=== PATIENT | male | born 1960 | race Caucasian/White ===

== ENCOUNTER 2017-07-16 01:06 | Emergency (ER) | payer OTHER ==
[2017-07-16 01:12] VITALS: BP 135/86; PULSE 66; RESP 18; TEMP 97.9; O2SAT 96
--- NOTE | 2017-07-16 01:26 | EDPHY ---
H & P Stated Complaint: PT SELF CATHS AND FEELS LIKE HE HAS UTI SXS Time Seen by Provider: 07/16/17 01:14 HPI/ROS: Chief Complaint: Bladder pressure, urinary discomfort HPI: 57-year-old male with a history of ulcerative colitis and a neurogenic bladder who is been doing self catheterization for the last 2 years. For the last 4 days patient has had increasing UTI symptoms including urgency to void, pain when he self caths, some low pelvic pain. No nausea or vomiting. No fevers or chills. No back pain. States it feels similar to prior urinary tract infections. ROS: 10 point Review of Systems is negative except as noted in the HPI. Family History: non-contributory Physical Exam: Gen: Awake, Alert, No Distress HEENT: Nose: no rhinorrhea Eyes: PERRLA, EOMI Mouth: Moist mucosa Neck: Supple, no JVD Chest: nontender, lungs clear to auscultation Heart: S1, S2 normal, no murmur Abd: Soft, non-tender, no guarding, right lower quadrant ostomy in place Back: no CVA tenderness, no midline tenderness Ext: no edema, non-tender Skin: no rash Neuro: CN II-XII intact, Sensation grossly intact, Strength 5/5 in bilateral upper and lower extremities - Personal History Current Tetanus/Diphtheria Vaccine: Unsure Current Tetanus Diphtheria and Acellular Pertussis (TDAP): Unsure - Medical/Surgical History Hx Asthma: No Hx Chronic Respiratory Disease: No Hx Diabetes: No Hx Cardiac Disease: No Hx Renal Disease: No Hx Cirrhosis: No Hx Alcoholism: No Hx HIV/AIDS: No Hx Splenectomy or Spleen Trauma: No Other PMH: chronic back pain, ulcerative colitis, GI SURGER X7, COLOSTOMY, SPINAL STENOSIS, SELF CATH DUE TO ABD SURGERY - Social History Smoking Status: Never smoked Constitutional: Initial Vital Signs Temperature (C) 36.6 C 07/16/17 01:07 Heart Rate 66 07/16/17 01:07 Respiratory Rate 18 07/16/17 01:07 Blood Pressure 135/86 H 07/16/17 01:07 O2 Sat (%) 96 07/16/17 01:07 O2 Delivery Mode Room Air Allergies/Adverse Reactions: latex Allergy (Verified 07/16/17 01:12) levofloxacin [From Levaquin] Allergy (Verified 07/16/17 01:12) morphine Allergy (Verified 07/16/17 01:12) Sulfa (Sulfonamide Antibiotics) Allergy (Verified 07/16/17 01:12) Home Medications: Medication Instructions Recorded GABAPENTIN 09/15/14 Nitrofurantoin Monohyd/M-Cryst 100 mg PO BID #10 capsule 07/16/17 [Macrobid 100 mg Capsule] Phenazopyridine HCl [Pyridium] 200 mg PO TID #6 tab 07/16/17 Medical Decision Making ED Course/Re-evaluation: Patient's urine is consistent with UTI. Given his symptomatology will start him on Macrobid and Pyridium. Will follow up with his primary care physician in 2 days. - Data Points Laboratory Results: 07/16/17 01:32 Urine Color YELLOW Urine Appearance MODERATELY TURBID Urine pH 6.0 (5.0-7.5) Ur Specific [place] 1.012 (1.002-1.030) Urine Protein 2+ H (NEGATIVE) Urine Ketones NEGATIVE (NEGATIVE) Urine Blood 3+ H (NEGATIVE) Urine Nitrate NEGATIVE (NEGATIVE) Urine Bilirubin NEGATIVE (NEGATIVE) Urine Urobilinogen NEGATIVE EU EU (0.2-1.0) Ur Leukocyte Esterase 3+ H (NEGATIVE) Urine RBC 50-182 /hpf H /hpf (0-3) Urine WBC 50-182 /hpf H /hpf (0-3) Ur Epithelial Cells NONE SEEN /lpf /lpf (NONE-1+) Urine Bacteria 1+ /hpf H /hpf (NONE SEEN) Urine Glucose NEGATIVE (NEGATIVE) Departure - Departure Disposition: Home, Routine, Self-Care Clinical Impression: Urinary tract infection Condition: Good Instructions: Urinary Tract Infection in Men (ED) Additional Instructions: Please take her full course of antibiotics. Follow up with primary care physician in 3-4 days if symptoms are not improving. Return to the emergency department for increasing pain, fevers, chills, nausea, vomiting, or any other concerns. Referrals: Yoselin Parekh MD [Primary Care Provider] - As per Instructions Prescriptions: Nitrofurantoin Monohyd/M-Cryst [Macrobid 100 mg Capsule] 100 mg PO BID #10 capsule Phenazopyridine HCl [Pyridium] 200 mg PO TID #6 tab
[2017-07-16] MEDS ORDERED: PHENAZOPYRIDINE HCL 200 MG TAB PO ONE (02:04)
[2017-07-16] MEDS ORDERED: NITROFURANTOIN 100MG PREPACK#2 BTL TAKEHOME ONE (02:04)
== END 2017-07-16 02:17 | disposition home or self-care (01) ==
DX: N39.0 Urinary tract infection, site not specified (principal); B96.20 Unspecified Escherichia coli [E. coli] as the cause of diseases classified elsewhere; Z91.040 Latex allergy status

== ENCOUNTER → 2018-05-24 | Outpatient (CLI) | payer OTHER | LOC: BMCIMAGING 09:23 → EDSTATUS 09:50 | PROVIDERS: ATTEND Orthopaedic Surgery | DX: M16.11 Unilateral primary osteoarthritis, right hip (principal) ==

== ENCOUNTER 2018-05-28 23:42 | Observation (INO) | payer OTHER ==
[2018-05-28] MEDS ORDERED: NS 1,000 ML IV ONE (23:54)
[2018-05-28] MEDS ORDERED: ONDANSETRON 4 MG/2 ML VIAL IVP ONE (23:54)
--- NOTE | 2018-05-28 23:54 | EDPHY ---
H & P Stated Complaint: poss gi blockage, n/v/abd pain x 24 hrs Time Seen by Provider: 05/28/18 23:54 HPI/ROS: HPI CHIEF COMPLAINT: Abdominal pain, nausea, vomiting decreased output from colostomy HISTORY OF PRESENT ILLNESS: 58-year-old male history of ulcerative colitis presents emergency room nausea vomiting and abdominal pain. Decreased output from his colostomy pouch. Patient states he has a long history of ulcer colitis. Side multiple abdominal surgeries. Presents emergency room nausea vomiting abdominal pain. Past Medical History: Significant medical history for cervical stenosis, ulcerative colitis Past Surgical History: Colostomy, J pouch, J pouch reversal Social History: Denies drugs alcohol tobacco Family History: Noncontributory ROS REVIEW OF SYSTEMS: 10 Systems were reviewed and negative with the exception of the elements mentioned in the history of present illness. Exam Constitutional triage nursing summary reviewed, vital signs reviewed, awake/ alert. Eyes normal conjunctivae and sclera, EOMI, PERRLA. HENT normal inspection, atraumatic, moist mucus membranes, no epistaxis, neck supple/ no meningismus, no raccoon eyes. Respiratory clear to auscultation bilaterally, normal breath sounds, no respiratory distress, no wheezing. Cardiovascular rate normal, regular rhythm, no murmur, no edema, distal pulses normal. Gastrointestinal mild tender palpation diffusely no peritoneal signs., no rebound, no guarding, normal bowel sounds, no distension, no pulsatile mass. Genitourinary no CVA tenderness. Musculoskeletal no midline vertebral tenderness, full range of motion, no calf swelling, no tenderness of extremities, no meningismus, good pulses, neurovascularly intact. Skin pink, warm, & dry, no rash, skin atraumatic. Neurologic awake, alert and oriented x 3, AAOx3, moves all 4 extremities equally, motor intact, sensory intact, CN II-XII intact, normal cerebellar, normal vision, normal speech. Psychiatric normal mood/affect. Heme/Lymph/Immune no lymphadenopathy. Differential Diagnosis: Differential diagnosis includes but is not limited to and in no particular order: Bowel obstruction, appendicitis, gallbladder disease, diverticulitis, colitis, enteritis, perforated viscus, gastritis, GERD , esophagitis, urinary tract infection, pyelonephritis, kidney stones Medical Decision Making: Plan for this patient IV establishment IV fluid bolus , IV Dilaudid for pain control IV Zofran nausea, lab work, CT scan abdomen pelvis with IV contrast. Re-evaluation: CT scan abdomen pelvis with IV contrast called to me by Dr. Swan: No free air no abscess. Small bowel has small bowl fecalazation. Most likely enteritis , pancreatitis ileus. 1:23 a.m. Patient continues to have pain. Ordered him more pain medicine. Abdomen is non peritoneal. Patient's lab work reviewed elevated lipase. Plan for admission for pancreatitis and abdominal pain. Spoke with Dr. Tim. Agrees to admit, Abdominal pain, Pancreatitis. Patient updated, agrees for admission. 0214: Updated patient agrees for admission. He is not vomiting. He is comfortable with IV Dilaudid this time received IV fluids. Resting comfortably. Plan for admission overnight observation, bowel rest, nausea medicine as needed , pain medicine as needed. Treat for pancreatitis. Source: Patient - Medical/Surgical History Hx Asthma: No Hx Chronic Respiratory Disease: No Hx Diabetes: No Hx Cardiac Disease: No Hx Renal Disease: No Hx Cirrhosis: No Hx Alcoholism: No Hx HIV/AIDS: No Hx Splenectomy or Spleen Trauma: No Other PMH: chronic back pain, ulcerative colitis, GI SURGER X7, COLOSTOMY, SPINAL STENOSIS, SELF CATH DUE TO ABD SURGERY - Social History Smoking Status: Never smoked Constitutional: Initial Vital Signs Heart Rate 82 05/28/18 23:47 Respiratory Rate 20 05/28/18 23:47 Blood Pressure 114/97 H 05/28/18 23:47 O2 Sat (%) 97 05/28/18 23:47 O2 Delivery Mode Room Air Allergies/Adverse Reactions: levofloxacin [From Levaquin] Allergy (Unknown, Verified 05/29/18 09:21) Hives morphine Allergy (Unknown, Verified 05/29/18 09:21) Hives Sulfa (Sulfonamide Antibiotics) Allergy (Unknown, Verified 05/29/18 09:21) Other-Enter Comments latex Allergy (Verified 05/28/18 23:51) Home Medications: Medication Instructions Recorded Gabapentin 1,800 mg PO HS 09/15/14 Acetaminophen [Tylenol 325mg (*)] 650 mg PO Q4HRS PRN tab 05/29/18 Herbals/Supplements -Info Only 1 ea PO DAILY 05/29/18 Ondansetron Odt [Zofran Odt] 4 mg PO Q4 #30 tab 05/29/18 Medical Decision Making - Data Points Laboratory Results: Laboratory Results 05/29/18 00:04 05/29/18 00:04 Medications Given: Discontinued Medications Enoxaparin Sodium (Lovenox) 40 mg SC DAILY ROMELIA Stop: 11/25/18 08:59 Last Admin: 05/29/18 09:19 Dose: 40 mg Hydromorphone HCl (Dilaudid) 1 mg IVP EDNOW ONE Stop: 05/29/18 00:09 Last Admin: 05/29/18 00:14 Dose: 1 mg Hydromorphone HCl (Dilaudid) 1 mg IVP EDNOW ONE Stop: 05/29/18 01:21 Last Admin: 05/29/18 01:23 Dose: 1 mg Hydromorphone HCl (Dilaudid) 0.5 mg IVP Q2HRS PRN PRN Reason: Pain, Severe Unable to Take PO Stop: 06/08/18 02:51 Last Admin: 05/29/18 11:13 Dose: 0.5 mg Sodium Chloride (Ns) 1,000 mls @ 0 mls/hr IV EDNOW ONE; Wide Open PRN Reason: Protocol Stop: 05/28/18 23:55 Last Admin: 05/29/18 00:14 Dose: 1,000 mls Sodium Chloride (Ns) 1,000 mls @ 0 mls/hr IV ONCE ONE PRN Reason: Wide Open Stop: 05/29/18 00:09 Last Admin: 05/29/18 00:14 Dose: 1,000 mls Sodium Chloride (Ns) 1,000 mls @ 0 mls/hr IV EDNOW ONE; Wide Open PRN Reason: Protocol Stop: 05/29/18 01:29 Last Admin: 05/29/18 01:28 Dose: 1,000 mls Sodium Chloride (Ns) 1,000 mls @ 125 mls/hr IV CONT ROMELIA Stop: 11/25/18 02:59 Last Admin: 05/29/18 10:51 Dose: 1,000 mls Lorazepam (Ativan Injection) 0.5 - 1 mg IVP Q8HRS PRN PRN Reason: Anxiety, Unable to Take PO Stop: 11/25/18 02:45 Last Admin: 05/29/18 05:50 Dose: 0.5 mg Ondansetron HCl (Zofran) 4 mg IVP EDNOW ONE Stop: 05/28/18 23:55 Last Admin: 05/29/18 00:13 Dose: 4 mg Ondansetron HCl (Zofran) 4 mg IVP Q4HRS PRN PRN Reason: Nausea/Vomiting, Can't Take PO Stop: 11/25/18 02:45 Last Admin: 05/29/18 09:04 Dose: 4 mg Ondansetron HCl (Zofran Odt) 4 mg PO Q4HRS PRN PRN Reason: Nausea/Vomiting, Use 1st Stop: 11/25/18 02:45 Last Admin: 05/29/18 13:37 Dose: 4 mg Departure - Departure Disposition: [facility] Inpatient Acute Clinical Impression: Abdominal pain Qualifiers: Abdominal location: generalized Qualified Code(s): R10.84 - Generalized abdominal pain Pancreatitis Qualifiers: Chronicity: acute Pancreatitis type: other Acute pancreatitis complication: unspecified Qualified Code(s): K85.80 - Other acute pancreatitis without necrosis or infection Condition: Fair
[2018-05-29] MEDS ORDERED: HYDROmorphONE/DILAUDID 2 MG/ML INJ IVP ONE ×2 (00:08→01:20)
[2018-05-29] MEDS ORDERED: NS 1,000 ML IV ONE ×2 (00:08→01:28)
[2018-05-29] MEDS ORDERED: HYDROmorphONE/DILAUDID 1 MG/ML INJ ONE ×2 (00:09→01:20)
[2018-05-29 00:13] LABS: PLATELET COUNT 324 10^3/uL (150-400)
[2018-05-29 00:22] LABS: INR 0.92 (0.83-1.16); PROTIME(PATIENT) 12.6 SEC (12.0-15.0)
[2018-05-29] MEDS ORDERED: IOPAMIDOL (ISOVUE 370) 100 ML BTL IV ONE (00:22)
[2018-05-29] MEDS ORDERED: ONDANSETRON DISINTEGRATING 4 MG TAB PO PRN (02:46)
[2018-05-29] MEDS ORDERED: ACETAMINOPHEN 325 MG TAB PO PRN (02:46)
[2018-05-29] MEDS ORDERED: HYDROCODONE/APAP 5/325 TAB PO PRN (02:46)
[2018-05-29] MEDS ORDERED: PROMETHAZINE HCL 25 MG/ML INJ IVP PRN (02:46)
[2018-05-29] MEDS ORDERED: LORazepam 2 MG/ML INJ IVP PRN (02:46)
[2018-05-29] MEDS: NS 1,000 ML IV SCH ×2 (03:07→10:51)
[2018-05-29] MEDS: ONDANSETRON 4 MG/2 ML VIAL IVP PRN ×2 (03:07→09:04)
[2018-05-29] MEDS: HYDROmorphONE/DILAUDID 1 MG/ML INJ IVP PRN ×3 (03:36→11:13)
--- NOTE | 2018-05-29 06:57 | PDGENHP ---
History and Physical - Chief Complaint Abdominal pain, no ostomy output - History of Present Illness Source-patient provides history and appears reliable. EMR was reviewed and case discussed with ED provider. HPI-this is a very pleasant 58-year-old gentleman with a past medical history significant for ulcerative colitis status post a colostomy and subsequent complicated course of a J pouch with need for revision and recurrent infections and adhesiolysis totaling in at least 7 abdominal surgeries who presents to the emergency department today with complaints of nausea, vomiting and increased abdominal pain with decreased ostomy output. Patient reports that he has had numerous bowel obstruction in the past but has been able to make significant lifestyle changes and dietary changes that he has not had any issues and a few years. Patient reports in the last 1-2 days he has noted some increased abdominal discomfort and thought that perhaps he was developing a partial small- bowel obstruction so he made himself NPO and had very little intake. He reports however for the new 's celebration he did eat in some foods that have not normally been on his diet that may have been difficult to digest. He denies any fevers or chills. No known sick contacts with GI symptoms. He reports diffuse abdominal pain and intermittent cramping. One patient's nausea , vomiting and abdominal pain became uncontrollable at home he presented to the emergency department. In the emergency department patient received IV fluids hand underwent CT of the abdomen that showed fecalization of small bowel and without overt obstruction but was concerning for gastroenteritis versus ileus versus developing small bowel obstruction. Since arrival to the medical floor patient has received additional low-dose Dilaudid and was able to rest. Additionally he notes that he is starting to have some loose output in his ostomy. He continues to have some low-grade nausea. History Information - Allergies/Home Medication List Allergies/Adverse Reactions: latex Allergy (Verified 05/28/18 23:51) levofloxacin [From Levaquin] Allergy (Verified 05/28/18 23:51) morphine Allergy (Verified 05/28/18 23:51) Sulfa (Sulfonamide Antibiotics) Allergy (Verified 05/28/18 23:51) Home Medications: GABAPENTIN 09/15/14 [Last Taken Unknown] I have personally reviewed and updated: family history, medical history, social history, surgical history - Past Medical History Additional medical history: Ulcerative colitis status post colectomy diagnosed age 29. History of multiple small-bowel obstruction with a history of adhesions and multiple abdominal surgeries due to complications and adhesions. Urinary retention chronic neck pain due to cervical spinal stenosis. History MRSA in 2012. - Surgical History Additional surgical history: Past surgical history abdominal surgeries x7 at least. Patient with history of colectomy with ostomy. He subsequently had a YANI post placement with a reversal following recurrent intra-abdominal infections - Family History Additional family history: Patient's maternal grandmother with a history of recurrent GI issues and abdominal surgeries due to pancreatic cancer in her 50s. Patient unsure if she was ever diagnosed with IBD as this was some time ago. Mother-rheumatoid arthritis and lung disease. Chronic GI symptoms but no history of ulcerative colitis. - Social History Smoking Status: Never smoked Alcohol Use: None Drug Use: Marijuana (Edible p.r.n.) Additional social history: Patient lives in [place] with his significant other. 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 Cor status-full. Patient's good friend is his MD [place] in he does have advance directives Review of Systems Review of Systems: ROS: 10pt was reviewed & negative except for what was stated in HPI & below Constitutional: Reports: no symptoms EENMT: Reports: sore throat (Related to vomiting). Denies: nose congestion Cardiac: Reports: no symptoms Respiratory: Reports: no symptoms Gastrointestinal: Reports: vomitting, abdominal pain (See HPI), nausea. Denies : diarrhea (Absent output upon admission now with some liquid in his ostomy bag. ) Genitourinary: Reports: no symptoms Muscolosketal: Reports: neck pain (Chronic neck pain due to spinal stenosis.) Skin: Reports: no symptoms Neurological: Reports: no symptoms Hematologic/Lymphatic: Reports: no symptoms Physical Exam Physical Exam: Selected Entries 05/28/18 23:47 Heart Rate 82 Respiratory 20 Rate O2 Sat (%) 97 Blood Pressure 114/97 H Mean Arterial 102 H Pressure (MAP) O2 Delivery Room Air Mode Temp Pulse Resp BP Pulse Ox 36.8 C 70 16 119/67 97 05/29/18 03:47 05/29/18 03:47 05/29/18 03:47 05/29/18 03:47 05/29/18 03:47 O2 (L/minute) 2 Constitutional: no apparent distress, appears nourished, No cachectic (Patient is thin with very limited body fat but quite toned does not appear cachectic.) Eyes: PERRL (Pupils decreased in size with decreased reactivity light bilaterally but symmetric.), anicteric sclera, EOMI, No scleral injection Ears, Nose, Mouth, Throat: dry mucous membranes, other (No nasal discharge.), No poor dentition Cardiovascular: regular rate and rhythym, no murmur, rub, or gallop, pulses symmetric bilaterally, edema Peripheral Pulses: 2+: dorsalis-pedis (R), dorsalis-pedis (L) Respiratory: no respiratory distress, no rales or rhonchi, clear to auscultation , No inspiratory crackles, No respiratory distress Gastrointestinal: soft, non-tender abdomen, no palpable masses, tenderness ( Generalized mild to soft palpation.), other (Hypoactive bowel sounds diffusely.) , No cantrell's sign, No guarding, No distension Genitourinary: no bladder tenderness, No humphries in urethra Skin: warm, no rashes or abrasions Musculoskeletal: full muscle strength, no muscle tenderness, pain with ROM (Neck ), other (Patient sits up independently. Moves all extremities.) Neurologic: AAOx3, sensation intact bilaterally, other (Grossly nonfocal exam.) , No facial droop Psychiatric: interacting appropriately, not anxious, not encephalopathic, thought process linear, other (Patient thought process content and questions are appropriate. Patient is pleasant and cooperative.) Lab Data & Imaging Review 05/29/18 00:04 05/29/18 00:04 WBC 13.97 10^3/uL (3.80-9.50) H 05/29/18 00:04 RBC 5.33 10^6/uL (4.40-6.38) 05/29/18 00:04 Hgb 15.8 g/dL (13.7-17.5) 05/29/18 00:04 Hct 45.7 % (40.0-51.0) 05/29/18 00:04 MCV 85.7 fL (81.5-99.8) 05/29/18 00:04 MCH 29.6 pg (27.9-34.1) 05/29/18 00:04 MCHC 34.6 g/dL (32.4-36.7) 05/29/18 00:04 RDW 12.7 % (11.5-15.2) 05/29/18 00:04 Plt Count 324 10^3/uL (150-400) 05/29/18 00:04 MPV 9.1 fL (8.7-11.7) 05/29/18 00:04 Neut % (Auto) 82.4 % (39.3-74.2) H 05/29/18 00:04 Lymph % (Auto) 9.1 % (15.0-45.0) L 05/29/18 00:04 Nelson % (Auto) 7.2 % (4.5-13.0) 05/29/18 00:04 Eos % (Auto) 0.6 % (0.6-7.6) 05/29/18 00:04 Baso % (Auto) 0.4 % (0.3-1.7) 05/29/18 00:04 Nucleat RBC Rel Count 0.0 % (0.0-0.2) 05/29/18 00:04 Absolute Neuts (auto) 11.53 10^3/uL (1.70-6.50) H 05/29/18 00:04 Absolute Lymphs (auto) 1.27 10^3/uL (1.00-3.00) 05/29/18 00:04 Absolute Monos (auto) 1.00 10^3/uL (0.30-0.80) H 05/29/18 00:04 Absolute Eos (auto) 0.08 10^3/uL (0.03-0.40) 05/29/18 00:04 Absolute Basos (auto) 0.05 10^3/uL (0.02-0.10) 05/29/18 00:04 Absolute Nucleated RBC 0.00 10^3/uL (0-0.01) 05/29/18 00:04 Immature Gran % 0.3 % (0.0-1.1) 05/29/18 00:04 Immature Gran # 0.04 10^3/uL (0.00-0.10) 05/29/18 00:04 PT 12.6 SEC (12.0-15.0) 05/29/18 00:04 INR 0.92 (0.83-1.16) 05/29/18 00:04 APTT 21.7 SEC (23.0-38.0) L 05/29/18 00:04 VBG Lactic Acid 2.2 mmol/L (0.7-2.1) H 05/29/18 00:04 Sodium 132 mEq/L (135-145) L 05/29/18 00:04 Potassium 3.9 mEq/L (3.5-5.2) 05/29/18 00:04 Chloride 99 mEq/L (97-110) 05/29/18 00:04 Carbon Dioxide 23 mEq/l (22-31) 05/29/18 00:04 Anion Gap 10 mEq/L (6-14) 05/29/18 00:04 BUN 20 mg/dL (7-23) 05/29/18 00:04 Creatinine 1.3 mg/dL (0.7-1.3) 05/29/18 00:04 Estimated GFR 57 05/29/18 00:04 Glucose 130 mg/dL (70-100) H 05/29/18 00:04 Calcium 10.0 mg/dL (8.5-10.4) 05/29/18 00:04 Total Bilirubin 0.8 mg/dL (0.1-1.4) 05/29/18 00:04 Conjugated Bilirubin 0.1 mg/dL (0.0-0.5) 05/29/18 00:04 Unconjugated Bilirubin 0.7 mg/dL (0.0-1.1) 05/29/18 00:04 AST 41 IU/L (17-59) 05/29/18 00:04 ALT 41 IU/L (21-72) 05/29/18 00:04 Alkaline Phosphatase 99 IU/L (38-126) 05/29/18 00:04 Total Protein 7.4 g/dL (6.3-8.2) 05/29/18 00:04 Albumin 4.8 g/dL (3.5-5.0) 05/29/18 00:04 Lipase 2261 IU/L (23-300) H 05/29/18 00:04 Imaging Review: CT abdomen pelvis. preliminary radiology report as noted below. History of UC with prior colectomy in ED with elevated WBC with left shift, elevated lipase of 2300, abdominal pain, N/V requesting dilaudid. Fluid distended SB with fecalized portions, but stomach not signficantly distended. Diff dx: enteritis vs ileus vs mechanical SB obstruction (stomal stenosis not excluded); no free air Mild "fullness" of the pancreas but no mass or peripancreatic phlegmon or abscess or biliary dilitation; GB moderately distended but no PCF, WT, or stone observed 4 mm LP RK nephrolith, with no obstruction Preliminary results discussed with Dr. García at 1:23 am on 05/29/18. MB Assessment & Plan Assessment: Pleasant 58-year-old gentleman with a history of ulcerative colitis s/p colectomy with ostomy and complicated intra-abdominal course with history of multiple small-bowel obstructions presents to the ED with complaints of 1-2 days of increasing abdominal pain, nausea, vomiting and decreased output in his ostomy. #Abdominal pain (Acute) - patient with a significant history GI history with multiple surgeries, adhesions, history of small-bowel obstructions. He has not had any recent sick contacts and has been afebrile. He did have decreased output from his ostomy which has started to produce some liquid output. Suspect that patient may have had early small-bowel obstruction versus ileus and will have patient continue NPO status given he continues to have some abdominal pain with improvement will hold off on advancing diet until patient could be recess this morning by day hospitalist. Consider additional discussion with surgery of patient does not continue to improve. P.r.n. Morphine and Ativan available. Patient received Dilaudid in the emergency department and was able to rest on the floor. #Elevated lipase - CT without any evidence of pancreatitis suspect this is elevated due to patient's intractable nausea vomiting. If patient should stay additional day consider repeating lipase however his symptoms are significantly improved at this time he does not drink alcohol. No evidence of gallstone or biliary obstruction. #Hyponatremia-likely secondary to hypovolemia. Continue with IV fluid resuscitation. Patient appears dehydrated even with IV fluid hydration in the ED. #Elevated lactate-mildly increased but likely due to dehydration. No evidence of sepsis or infectious process at this point. No need to repeat. Continue with IV fluid. #Leukocytosis - likely reactive in setting of abdominal pain, dehydration and nausea vomiting. Patient is afebrile. #Dehydration-continue with IV fluid hydration. NPO status as noted above. #Chronic neck pain due to cervical spinal stenosis - patient reports he typically controls this with daily yoga and exercise as well as gabapentin in the evening. Resume once patient's diet is advanced. FEN - continue IV fluids as noted above. NPO status pending reassessment in the morning by day team. Patient is starting to have some amount of output in his ostomy. Electrolytes are adequate at this time replace if needed. PPX-SCDs. Consider anticoagulation if patient should stay additional day. Otherwise patient low to moderate risk encourage mobilization. Cor status-full Disposition-patient admitted observation status on the med [facility] floor. He is beginning to have output in his ostomy and his abdominal pain is improved. He has not yet had his diet advanced pending day team evaluation.
[2018-05-29] MEDS ORDERED: ENOXAPARIN 40 MG/0.4 ML SYR SC SCH (09:00)
--- NOTE | 2018-05-29 11:37 | ASMTCMCOM ---
CM Note CM Note Notes: Pt is a 58 y/o man admitted or abdominal pain. Pt with a hx of 7 abdominal surgeries. Pt hs a ostomy. Pt will most likely d/c independent when medically stable. No therapies ordered at this time. CM available for changes. Plan: Independent Date Signed: 05/29/2018 11:36 AM Electronically Signed By:REJI Heck
[2018-05-29 12:12] VITALS: BP 108/70
--- NOTE | 2018-05-29 13:36 | HOSPPROG ---
Hospitalist Progress Note Assessment/Plan: Saida 58-year-old gentleman with a history of ulcerative colitis s/p colectomy with ostomy and complicated intra-abdominal course with history of multiple small-bowel obstructions presents to the ED with complaints of 1-2 days of increasing abdominal pain, nausea, vomiting and decreased output in his ostomy. #Abdominal pain (Acute) - patient with a significant history GI history with multiple surgeries, adhesions, history of small-bowel obstructions. - decreased output from his ostomy - early small-bowel obstruction versus ileus - continue NPO - Consult surgery - P.r.n. Morphine and Ativan #Elevated lipase - CT without any evidence of pancreatitis - likely elevated due to patient's intractable nausea vomiting - repeating lipase - he does not drink alcohol - No evidence of gallstone or biliary obstruction #Hyponatremia -likely secondary to hypovolemia -Continue with IV fluid resuscitation -Patient appears dehydrated even with IV fluid hydration in the ED #Elevated lactate -mildly increased, likely due to dehydration -No evidence of sepsis or infectious process at this point. - No need to repeat. Continue with IV fluid. #Leukocytosis - likely reactive in setting of abdominal pain - dehydration and nausea vomiting. - Patient is afebrile. #Dehydration -continue with IV fluid hydration. -NPO status as noted above. #Chronic neck pain due to cervical spinal stenosis - patient reports he typically controls this with daily yoga and exercise as well as gabapentin in the evening. -Resume once patient's diet is advanced. FEN - continue IV fluids as noted above -Patient is starting to have some amount of output in his ostomy. - Electrolytes are adequate at this time replace PPX-SCDs. Consider anticoagulation if patient should stay additional day. Otherwise patient low to moderate risk encourage mobilization. Cor status-full Disposition -patient admitted observation status on the [facility] floor. -He is beginning to have output in his ostomy and his abdominal pain is improved. Subjective: Feeling better. Objective: Vital Signs Temp Pulse Resp BP Pulse Ox 36.6 C 71 14 108/70 95 05/29/18 12:00 05/29/18 12:00 05/29/18 12:00 05/29/18 12:00 05/29/18 12:00 05/28/18 05/29/18 05/30/18 05:59 05:59 05:59 Intake Total 3339 Output Total 850 Balance 3339 -850 PT 12.6 SEC (12.0-15.0) 05/29/18 00:04 INR 0.92 (0.83-1.16) 05/29/18 00:04 - Physical Exam Constitutional: no apparent distress, appears nourished, not in pain Eyes: PERRL, anicteric sclera, EOMI Ears, Nose, Mouth, Throat: moist mucous membranes, hearing normal, ears appear normal Cardiovascular: regular rate and rhythym, No JVD, No edema Respiratory: no respiratory distress, no rales or rhonchi, reduced air movement Gastrointestinal: tenderness, No normoactive bowel sounds, No ascites Skin: warm, normal color, No mottled Musculoskeletal: normal joint ROM, no joint effusions, generalized weakness Neurologic: AAOx3 Psychiatric: interacting appropriately, not anxious, not encephalopathic ICD10 Worksheet Patient Problems: Problems Problem Status Onset Abdominal pain Acute Pancreatitis Acute
--- NOTE | 2018-05-29 14:11 | GDS ---
DISCHARGE DIAGNOSES: 1. Small bowel obstruction. 2. Abdominal pain. 3. Elevated lipase. 4. Hyponatremia. 5. Elevated lactate. 6. Leukocytosis. 7. Dehydration. 8. Chronic pain. HOSPITAL COURSE: Patient is a 58-year-old male who has longstanding complicated history of abdominal surgeries, presented to the emergency room with complaints of abdominal pain with nausea and vomitin g. A CT scan of his abdomen was performed noting likely a small bowel obstruction. He states that danii dacosta has had multiple small bowel obstructions in the past that have resolved independently. He feels t hat his small bowel obstruction has now resolved. His pain is gone. His ostomy has significant outp ut and he is eager to be discharged home. I have expressed to him that he is welcome to stay overnig ht in the hospital for further observation. However, he feels that he has returned to his baseline a nd he can manage in the outpatient setting. Thus far, the patient has elevated lipase and hyponatrem ia with elevated lactate, these are all likely in the acute setting of dehydration and vomiting. He will follow with his primary care physician outside the hospital for further intervention as needed. DISCHARGE MEDICATIONS: Please refer to EMR form; I have not adjusted the patient's previously prescr ibed home medications. /[id number]/MODL
== END 2018-05-29 14:10 | disposition home or self-care (01) ==
LOC: F3E 05-29 02:36
PROVIDERS: ADMIT Family Medicine; ATTEND Internal Medicine
DX: K56.609 Unspecified intestinal obstruction, unspecified as to partial versus complete obstruction (principal); R74.8 Abnormal levels of other serum enzymes; E87.1 Hypo-osmolality and hyponatremia; R74.0 Nonspecific elevation of levels of transaminase and lactic acid dehydrogenase [LDH]; D72.829 Elevated white blood cell count, unspecified; E86.0 Dehydration; R10.9 Unspecified abdominal pain; K51.919 Ulcerative colitis, unspecified with unspecified complications; G89.29 Other chronic pain; N20.0 Calculus of kidney; M48.02 Spinal stenosis, cervical region; Z86.14 Personal history of Methicillin resistant Staphylococcus aureus infection; Z93.3 Colostomy status; Z91.040 Latex allergy status; Z88.2 Allergy status to sulfonamides
CPT/HCPCS: 74177; 96361; 96372; 96374; 96375; 96376; 99285; G0378; J1170; J1650; J2060; J2405; Q9967